=== PATIENT | female | born 1995 | race Caucasian/White ===

== ENCOUNTER 2019-02-20 00:38 | Emergency (ER) | payer SELFPAY ==
[2019-02-20] MEDS ORDERED: METOCLOPRAMIDE HCL INJ/PF 10 MG/2 ML SDV IV ONE (02:55)
--- NOTE | 2019-02-20 03:22 | ER Document Report ---
ED General - General Chief Complaint: Nose Bleed Stated Complaint: HEADACHES Time Seen by Provider: 02/20/19 02:43 Notes: Patient is a 23 year old female that comes to the Emergency Department for chief complaint of headaches. She has been having them for the past 4 days or so. She states she currently has a throbbing headache in the front of her head with occasional mild nausea. She denies vomiting, visual changes, photophobia, injury, neck pain, fever/chills, focal numbness or weakness. She states that she wonders if she is having seizures, she had a seizure when she was 20, she is not on seizure medications. She states sometimes it is hard to focus and sometimes she feels like she misses what people are saying. Significant other bedside denies any noticed seizure activity except for possibly some muscle tics and some difficulty concentrating. Patient states that symptoms of headaches have been worse since she started flip-flopping her schedule to cover night shifts at work. She reports sleeping poorly. She was seen by primary care, take Flexeril for back pain, was given amitriptyline for headaches and uses this to help her sleep. He denies any other medications. Denies recent alcohol, recreational drugs, smoking. - Related Data Allergies/Adverse Reactions: No Known Allergies Allergy (Unverified 02/20/19 03:46) Past Medical History - General Information source: Patient, Relative - Social History Smoking Status: Never Smoker Frequency of alcohol use: Occasional Drug Abuse: None Lives with: Spouse/Significant other Family History: Reviewed & Not Pertinent Neurological Medical History: Reports: Hx Migraine, Hx Seizures - Immunizations Immunizations up to date: Yes Hx Diphtheria, Pertussis, Tetanus Vaccination: Yes Review of Systems - Review of Systems Constitutional: No symptoms reported EENT: No symptoms reported Cardiovascular: No symptoms reported Respiratory: No symptoms reported Gastrointestinal: No symptoms reported Genitourinary: No symptoms reported Female Genitourinary: No symptoms reported Musculoskeletal: No symptoms reported Skin: No symptoms reported Hematologic/Lymphatic: No symptoms reported Neurological/Psychological: See HPI Physical Exam - Vital signs Vitals: Temp Pulse Resp BP Pulse Ox 98.3 F 100 17 109/60 99 02/20/19 00:48 02/20/19 00:48 02/20/19 00:48 02/20/19 00:48 02/20/19 00:48 - Notes Notes: GENERAL: Alert, interacts well. No acute distress. HEAD: Normocephalic, atraumatic. EYES: Pupils equal, round, and reactive to light. Extraocular movements intact. ENT: Oral mucosa moist, tongue midline. Oropharynx unremarkable. Airway patent. Nares patent, no nasal septal hematoma, TM's intact. NECK: Full range of motion. Supple. Trachea midline. LUNGS: Clear to auscultation bilaterally, no wheezes, rales, or rhonchi. No respiratory distress. HEART: Regular rate and rhythm. No murmur ABDOMEN: Soft, non-tender. Non-distended. Bowel sounds present in all 4 quadrants. GENITOURINARY: Deferred EXTREMITIES: Moves all 4 extremities spontaneously. No edema, normal radial and dorsalis pedis pulses bilaterally. No cyanosis. BACK: no cervical, thoracic, lumbar midline tenderness. No saddle anesthesia, normal distal neurovascular exam. Moves all extremities in full range of motion. NEUROLOGICAL: Alert and oriented x3. Normal speech. Cranial nerves II through XII grossly intact. PSYCH: Normal affect, normal mood. SKIN: Warm, dry, normal turgor. No rashes or lesions noted. Course - Re-evaluation Re-evalutation: Patient is well-appearing. Patient also reports that she had a nosebleed several times yesterday but this resolved. No evidence of nosebleed on exam. CBC, chemistry, magnesium unremarkable. I did discuss lab work with patient and significant other, they state satisfaction with these findings and they did want a work-up. Patient has no neurological deficits. Patient was treated with Reglan for her headache which she described as 6 out of 10 on initial evaluation, this completely resolved on reevaluation. Patient is requesting to leave on reevaluation, states she feels great. She requests something for headache. She states she is planning on following with primary care and neurology through them. I did discuss neurology symptoms, because she is not having definite seizures I did not recommend she be started on an antiepileptic at this time. I discussed follow-up and return precautions. Patient states understanding and agreement. - Vital Signs Vital signs: Temp Pulse Resp BP Pulse Ox 98.3 F 93 18 118/68 100 02/20/19 05:23 02/20/19 05:23 02/20/19 05:23 02/20/19 05:02/20/19 05:23 - Laboratory Result Diagrams: 02/20/19 03:41 02/20/19 03:41 Laboratory results interpreted by me: 02/20/19 03:41 RBC 5.29 H MCV 79 L MCH 26.6 L Eosinophils % 7.5 H Discharge - Discharge Clinical Impression: Frequent headaches Condition: Stable Disposition: HOME, SELF-CARE Additional Instructions: Your evaluation, symptoms, and resolution with treatment are very suggestive of a migraine. Your laboratory work-up does not show any concerning findings. You can take the prescribed medication if needed for headaches in the future. Continue your current medications and primary care/follow-up as well. Return if you worsen including returned or severe headache, vomiting, fever, or any other concerning or worsening symptoms. Prescriptions: Butalb/Acetaminophen/Caffeine [Fioricet (50-325-40 mg) Tablet] 1 tab PO Q4HP PRN #20 tab PRN Reason: Forms: Return to Work
[2019-02-20 04:04] LABS: ABSOLUTE EOSINOPHILS # (AUTO) 0.5 10^3/uL (0.0-0.6); ABSOLUTE LYMPHOCYTES (AUTO) 2.4 10^3/uL (0.5-4.7); ABSOLUTE MONOCYTES (AUTO) 0.6 10^3/uL (0.1-1.4); ABSOLUTE NEUT (AUTO) 3.1 10^3/uL (1.7-8.2); BASOPHILS % (AUTO) 0.6 % (0-2); EOSINOPHILS % (AUTO) 7.5 % (0-6); HEMATOCRIT 41.5 % (36.0-47.0); HEMOGLOBIN 14.1 g/dL (12.0-15.5); LYMPHOCYTES % (AUTO) 36.2 % (13-45); MEAN CORPUSCULAR HEMOGLOBIN 26.6 pg (27.0-33.4); MEAN CORPUSCULAR HGB CONC 33.8 g/dL (32.0-36.0); MEAN CORPUSCULAR VOLUME 79 fl (80-97); MONOCYTES % (AUTO) 8.9 % (3-13); PLATELET COUNT 231 10^3/uL (150-450); RED BLOOD COUNT 5.29 10^6/uL (3.72-5.28); RED CELL DISTRIBUTION WIDTH 13.3 % (11.5-14.0); SEGMENTED NEUTROPHILS % (AUTO) 46.8 % (42-78); TOTAL CELLS COUNTED % (AUTO) 100 %; WHITE BLOOD COUNT 6.6 10^3/uL (4.0-10.5)
[2019-02-20 04:22] LABS: ALANINE AMINOTRANSFERASE 18 U/L (9-52); ALBUMIN 4.4 g/dL (3.5-5.0); ALKALINE PHOSPHATASE 84 U/L (38-126); ANION GAP 9 (5-19); ASPARTATE AMINO TRANSFERASE 25 U/L (14-36); BILIRUBIN,DIRECT 0.2 mg/dL (0.0-0.4); BILIRUBIN,TOTAL 0.4 mg/dL (0.2-1.3); BLOOD UREA NITROGEN 15 mg/dL (7-20); CALCIUM 10.1 mg/dL (8.4-10.2); CARBON DIOXIDE 27 mmol/L (22-30); CHLORIDE 104 mmol/L (98-107); GLUCOSE 91 mg/dL (75-110); POTASSIUM 4.4 mmol/L (3.6-5.0); SODIUM 139.8 mmol/L (137-145); TOTAL PROTEIN 7.5 g/dL (6.3-8.2)
[2019-02-20 04:23] LABS: ALCOHOL < 10 mg/dL (NONE DETECTED)
[2019-02-20 05:24] VITALS: BP 118/68
== END 2019-02-20 05:23 | disposition home or self-care (01) ==
LOC: ER 00:38
DX: R51 Headache (principal); R04.0 Epistaxis
CPT/HCPCS: 99283; 96374; 36415; 80307; 83735; 84703; 85025; 80053; J2765

== ENCOUNTER → 2019-11-10 | Outpatient (CLI) | payer SELFPAY ==
[2019-11-10 11:45] LABS: A TYPE INFLUENZA AG NEGATIVE (NEGATIVE); B INFLUENZA AG NEGATIVE (NEGATIVE)
== END ==
LOC: RDC 10:52
PROVIDERS: ATTEND Nurse Practitioner Family
DX: Z20.828 Contact with and (suspected) exposure to other viral communicable diseases (principal)
CPT/HCPCS: 36415; 87070; 87635; 87804; 87880